=== PATIENT | female | born 1980 | race Caucasian/White ===

== ENCOUNTER 2024-10-28 06:36 | Emergency (ER) | payer MEDICAID ==
[~2024-10-28] VITALS: Ht 172.7 cm; Wt 72.0 kg
[2024-10-28 06:39] VITALS: TEMP 36.7; O2SAT 100
[2024-10-28] MEDS: ONDANSETRON HCL 4MG/2ML INJ IV STA (06:46)
[2024-10-28 08:19] LABS: BASOPHILS % 0.5 % (0.0-2.0); HEMATOCRIT. 36.4 % (36.0-48.0); HEMOGLOBIN. 12.2 g/dL (12.0-16.0); MEAN CORPUSCULAR HEMOGLOBIN 31.2 pg (28.0-32.0); MEAN CORPUSCULAR HGB CONC 33.4 g/dL (31.0-37.0); MEAN CORPUSCULAR VOLUME 93.5 fL (81.0-99.0); MEAN PLATELET VOLUME 8.3 fl (7.4-10.4); MONOCYTES % 5.6 % (2.0-8.0); NEUTROPHILS % 72.9 % (40.0-76.0); PLATELET 260 x1000/uL (130-400); RED CELL DISTRIBUTION WIDTH 14.5 % (11.6-14.6); WHITE BLOOD COUNT 9.9 x1000/uL (4.5-11.0)
[2024-10-28] MEDS: ONDANSETRON HCL 4MG/2ML INJ IV NR (08:20)
[2024-10-28] MEDS: SODIUM CHLORIDE 0.9% 1,000 ML IV ONE (08:20)
[2024-10-28 08:31] LABS: CHLORIDE 108 mEq/L (98-107); POTASSIUM 3.2 mEq/L (3.5-5.1); SODIUM 143 mEq/L (136-145)
[2024-10-28 08:32] LABS: CALCIUM 9.1 mg/dL (8.7-10.4); CARBON DIOXIDE 28 mEq/L (21-32)
[2024-10-28 08:37] LABS: CREATININE 0.8 mg/dL (0.6-1.0); GLUCOSE 110 mg/dL (70-105); UREA NITROGEN BLOOD 9 mg/dL (9-23)
[2024-10-28 08:44] LABS: ETHANOL BLOOD < 10 mg/dL (<10)
[2024-10-28] MEDS ORDERED: NALO4SPR BOTHNSTRLS (09:05)
[2024-10-28 09:42] VITALS: BP 127/78; PULSE 62; RESP 18; O2SAT 99
== END 2024-10-28 09:42 | disposition home or self-care (01) ==
LOC: ER 06:36
DX: T40.2X1A Poisoning by other opioids, accidental (unintentional), initial encounter (principal); Y92.9 Unspecified place or not applicable
CPT/HCPCS: 80048; 80320; 85025; 36415; 96374; 99291; J2405; J7030; G0480